=== PATIENT | male | born 1945 | race Caucasian/White ===

== ENCOUNTER → 2017-04-03 | Outpatient (CLI) | payer MEDICARE, OTHER ==
[~2017-04-03] MED LIST: AMBIEN10 MG; AMBIEN10 MG PO; AMLODIPINE-VAL1 EAC1 PO; BETAPACE (GENER80 MG; DITROPAN XL15 MG PO; DOCUSATE SODIU1 EACH PO; LOPRESSOR25 MG PO; MAGNESIUM400 M1 PO; MIRALAX17 GM PO; PERCOCET 5-3251 EACH PO; PRINIVIL (ZESTR20 MG; XANAX; XARELTO15 MG PO; XARELTO20 MG PO; ZOCOR40 MG PO
== END | disposition disaster alternative care site (69) ==
LOC: GRAD 14:54
DX: R93.7 Abnormal findings on diagnostic imaging of other parts of musculoskeletal system (principal); M89.9 Disorder of bone, unspecified; M47.892 Other spondylosis, cervical region; Z85.46 Personal history of malignant neoplasm of prostate